=== PATIENT | female | born 1980 | race Caucasian/White ===

== ENCOUNTER → 2018-01-08 14:00 | Outpatient (CLI) | payer OTHER, SELFPAY | DX: Z23 Encounter for immunization (principal) | CPT/HCPCS: 90471; 90682 ==

== ENCOUNTER → 2018-10-30 15:12 | Outpatient (CLI) | payer OTHER, SELFPAY ==
[2018-10-30 17:01] LABS: Alanine Aminotransferase 19 IU/L (9-52); Albumin 4.4 g/dL (3.5-5.0); Albumin Globulin Ratio 1.8 (1.0-2.8); Alkaline Phosphatase 77 U/L (38-126); Amylase 62 U/L (30-110); Aspartate Aminotransferase 21 IU/L (14-36); BUN Creatinine Ratio 22.2 (6-22); Bilirubin Total 0.3 mg/dL (0.2-1.3); Blood Urea Nitrogen 20 mg/dL (7-17); Calcium 9.3 mg/dL (8.4-10.2); Carbon Dioxide 28 mmol/L (22-32); Chloride 102 mmol/L (98-107); Estimated Glomerular Filt Rate > 60.0 mL/min (>60); Globulin 2.5 g/dL (1.7-4.1); Glucose 94 mg/dL (70-100); HEMOLYSIS < 15 (0-50); Lipase 224 U/L (23-300); Potassium 5.1 mmol/L (3.4-5.1); Sodium 140 mmol/L (137-145); Total Protein 6.9 g/dL (6.3-8.2)
== END ==
PROVIDERS: PCP Family Medicine; Visit Provider Student in an Organized Health Care Education/Training Program
DX: R11.0 Nausea (principal)
CPT/HCPCS: 36415; 80053; 82150; 83690

== ENCOUNTER → 2019-01-21 11:47 | Outpatient (CLI) | payer OTHER, SELFPAY | PROVIDERS: PCP Family Medicine | DX: Z23 Encounter for immunization (principal) | CPT/HCPCS: 90471; 90682 ==

== ENCOUNTER → 2019-08-09 11:16 | Outpatient (CLI) | payer OTHER, SELFPAY ==
[2019-08-11 03:36] LABS: COVID19 Sendout Not Detected (Not Detected)
== END ==
PROVIDERS: PCP Family Medicine; Visit Provider Registered Nurse
DX: Z20.828 Contact with and (suspected) exposure to other viral communicable diseases (principal)
CPT/HCPCS: 87635

== ENCOUNTER → 2019-08-10 13:39 | Outpatient (CLI) | payer OTHER, SELFPAY ==
[2019-08-12 20:20] LABS: Influenza A - CEPHEID Flu A NEGATIVE (NEGATIVE); Influenza B - CEPHEID Flu B NEGATIVE (NEGATIVE)
== END ==
PROVIDERS: PCP Family Medicine; Visit Provider Registered Nurse
DX: J02.9 Acute pharyngitis, unspecified (principal); Z20.828 Contact with and (suspected) exposure to other viral communicable diseases
CPT/HCPCS: 87502

== ENCOUNTER → 2020-01-22 07:39 | Outpatient (CLI) | payer OTHER, SELFPAY ==
--- NOTE | 2020-01-22 | DI.US.S_ITS ---
PROCEDURE: US PELVIC COMPLETE INDICATIONS: IRREGULAR MENSES TECHNIQUE: Real-time scanning was performed of the pelvic organs, with image documentation. Additional endovaginal scanning was necessary due to incomplete visualization of the adnexal and endometrial structures by transabdominal scanning. COMPARISON: None. FINDINGS: Transabdominal scanning: Limited scanning through the kidneys shows no hydronephrosis. No pathologic free abdominal or pelvic fluid. Endovaginal scanning: Uterus: Uterus is normal in size at 6.6 x 3.9 x 4.4 cm. The endometrium measures 2.3 mm in combined thickness. There is a left posterior intramural fibroid which measures 0.9 x 0.5 x 0.8 cm and a left anterior intramural fibroid which measures 0.8 x 0.7 x 0.6 cm. Ovaries: The right ovary measures 2.2 x 1.6 x 2.2 cm and has a normal echotexture. There is a dominant 1.3 cm right ovarian follicle. The left ovary measures 2.4 x 1.0 x 2.8 cm. IMPRESSION: Unremarkable pelvic ultrasound. Dictated by: Pennie Motley M.D. on 01/22/2020 at 11:18 Approved by: Pennie Motley M.D. on 01/22/2020 at 11:20
--- NOTE | 2020-01-22 | DI.US.S_ITS ---
PROCEDURE: US ABDOMEN COMPLETE INDICATIONS: ELEVATED LIPASE, NAUSEA TECHNIQUE: Real-time scanning was performed of the abdominal and retroperitoneal organs, with image documentation. COMPARISON: MR, ABDOMEN W/O CONTRAST, 08/19/2014, 7:01. FINDINGS: Liver: Liver is normal in size and homogeneous in echotexture. Gallbladder: 1.3 cm solitary gallstone present and there is no gallbladder wall thickening or pericholecystic fluid. Biliary ducts: Intrahepatic bile ducts are non-dilated. Extrahepatic bile duct caliber measures 4.1 mm. Normal is 6-7 mm or less in diameter, or 10 mm or less post-cholecystectomy. Pancreas: Visualized portions of the pancreas are sonographically normal. Spleen: Spleen is normal in size and homogeneous in echotexture. Kidneys: Kidneys are normal in size and echotexture. Right kidney measures 10.5 cm long; left kidney measures 10.7 cm long. No hydronephrosis or nephrolithiasis. No solid masses. Aorta: Visualized aorta is normal in caliber at less than 3 cm. Iliacs: Proximal common iliac arteries are normal in caliber at less than 2.5 cm. IVC: Intrahepatic inferior vena cava is patent. Miscellaneous: No free abdominal fluid. IMPRESSION: Cholelithiasis without acute cholecystitis. Dictated by: Quinten Forrest [facility] Interpreted: Kemar Camilo MD on 01/22/2020 at 8:32 Approved by: Kemar Camilo M.D. on 01/22/2020 at 16:47
== END ==
PROVIDERS: PCP Family Medicine; Referring Provider Family Medicine; Visit Provider Family Medicine
DX: N92.6 Irregular menstruation, unspecified (principal); K80.20 Calculus of gallbladder without cholecystitis without obstruction; R50.9 Fever, unspecified
CPT/HCPCS: 76700; 76830; 76856

== ENCOUNTER → 2020-02-03 19:17 | Outpatient (CLI) | payer OTHER, SELFPAY | PROVIDERS: PCP Family Medicine; Referring Provider Internal Medicine; Visit Provider Internal Medicine | DX: Z23 Encounter for immunization (principal) | CPT/HCPCS: 90471; 90682 ==

== ENCOUNTER → 2020-03-16 15:29 | Outpatient (CLI) | payer OTHER, SELFPAY ==
[2020-03-16 16:22] LABS: COVID19 -Nasal RAPID Negative (Negative)
== END ==
PROVIDERS: PCP Family Medicine; Visit Provider Surgery
DX: Z11.59 Encounter for screening for other viral diseases (principal)
CPT/HCPCS: 87635; C9803

== ENCOUNTER 2020-03-17 10:58 | Day surgery (SDC) | payer OTHER, SELFPAY ==
[2020-03-12 13:29] VITALS: BMI 31.4
[2020-03-17] VITALS (11 sets, daily range): BP systolic 134–149; BP diastolic 75–94; PULSE 56–92; RESP 10–16; TEMP 36.6–36.9; O2SAT 98–100; BMI 32.1
--- NOTE | 2020-03-17 | PATH_ITS ---
[facility] Accession Number: [id number] . 01 Material submitted: . gallbladder - GALLBLADDER . 02 Diagnosis: Gallbladder, Cholecystectomy: Cholelithiasis with chronic, mild active cholecystitis and cholesterolosis. No evidence of neoplasm. MRV 03/19/2020 1132 Local . 02 Electronically signed: . Av Dumont MD, PhD, Pathologist NPI- [id number] . 01 Gross description: . Received in formalin, labeled gallbladder, and consists of a 6.5 x 3.5 x 2.2 cm previously disrupted gallbladder with a 0.4 cm in diameter cystic duct. The serosa is jaeger-pink and wrinkled. Opening reveals green viscous bile with a 1.2 x 1.0 x 1.0 cm green bosselated cholelith. The mucosa is jaeger-green and velvety with cholesterolosis. The wall thickness measures 0.1 cm. Subacute Nurse sections are submitted to include the en face cystic duct margin (black), body and fundus in cassette A1. ([id number]) /MRV 03/18/2020 1124 Local . 02 Pathologist provided ICD-10: K80.60 . 02 CPT . 277444 Performed at: 01 [facility] [address], [place], [place] [id number] MD Pop Strickland MD Phone: [phone] Performed at: 02 [facility] [address] [place], [place] [id number] MD Maggie Winter MD Phone: [phone]
--- NOTE | 2020-03-17 11:35 | SUR.OPER ---
Supine on padded OR bed, head on pillow, arms secured on padded arm boards at <90 degrees abduction, legs uncrossed, safety belt at thigh, tape over blanket over lower legs.
--- NOTE | 2020-03-17 11:36 | PM.HP.1 ---
History of Present Illness History of Present Illness Date Patient Seen: 03/17/20 Time Patient Seen: 11:36 Chief complaint: SDC Narrative: This is a 40-year-old woman with a complicated history of choledocholithiasis, sphincter of Oddi spasm, multiple MRCPs and ERCPs, pancreatitis, acid reflux, Brady's esophagus, toupe hiatal hernia repair, and hepatomegaly. She has had ongoing issues with gallstones, and in spite of having multiple ERCPs, has never had her gallbladder removed. She now presents with persistent right upper quadrant pain which is exacerbated by eating anything fatty or greasy. She had a right upper quadrant ultrasound which shows gallstones in the gallbladder, and non dilated bile ducts. She is here today for laparoscopic possible open cholecystectomy with possible intra op cholangiogram and indocyanine cholangiography. She reports no change since her last visit with me on 02/10/2020 ROS: Positive for low-grade fevers, fatigue, abdominal pain, change in bowel habits, constipation, reflux symptoms, nausea, irregular menses, weakness, anxiety, easy bruising. Thirteen system review is otherwise negative other than as mentioned below and in HPI. PE: GENERAL: Well groomed and cooperative. Appears stated age. Answers questions promptly and appropriately. Vital signs noted. HENT: Normocephalic, atraumatic. Hearing intact. EYES: Conjunctiva pink, sclera white, no periorbital swelling. CARDIOVASCULAR: Regular rate. No pedal edema. RESPIRATORY: Non-tachypneic, breathing comfortably on room air. GASTROINTESTINAL: Abdomen soft and non-distended; mild tenderness to palpation in the right upper quadrant and epigastrium. Multiple well-healed incisional scars from her hiatal hernia repair. Umbilical ring in place just superior to the umbilicus. GENITALURINARY: No flank tenderness. MUSCULOSKELETAL: Equal tone and mass bilaterally. SKIN: Warm, dry, soft, appropriate color for ethnicity. No other lesions, rashes, or wounds. NEURO: Alert and Oriented X 3. No gross sensory deficits, or cognitive issues. PSYCH: Appropriate affect and mood. Patient History Medical History Anxiety Asthma Chronic neck and back pain Difficulty swallowing Easy bruisability GERD (gastroesophageal reflux disease) Headache, migraine Pancreatitis Seasonal allergies Surgical History History of ERCP History of fundoplication Hx of rectal sphincterotomy Family & Social History Family History Mother Diabetes mellitus Gallstones Father Gallstones Social History: household members significant other Tobacco & Substance use: Smoking Status Never smoker alcohol intake current alcohol intake frequency 0-2 drinks per day Substance Use Type does not use Meds Home Medications and Allergies Home Medications Medication Instructions Recorded Confirmed Type acetylcarnitine HCl 250 mg capsule 250 mg PO DAILY 02/10/20 03/17/20 History cetirizine 10 mg tablet 10 mg PO DAILY 02/10/20 03/17/20 History cholecalciferol (vitamin D3) 50 50 mcg PO DAILY 02/10/20 03/17/20 History mcg (2,000 unit) capsule coenzyme Q10 75 mg capsule 75 mg PO DAILY 02/10/20 03/17/20 History lysine 500 mg tablet 1,000 mg PO DAILY 02/10/20 03/17/20 History metoclopramide HCl 10 mg tablet 10 mg PO Q6H PRN 02/10/20 03/17/20 History multivitamin 1 cap PO DAILY 02/10/20 03/17/20 History s-adenosylmethionine 400 mg tablet 400 mg PO DAILY 02/10/20 03/17/20 History vitamin B complex 1 tab PO DAILY 02/10/20 03/17/20 History zinc 50 mg tablet 50 mg PO DAILY 02/10/20 03/17/20 History docusate sodium 100 mg capsule 100 mg PO BID #20 cap 03/16/20 Rx oxycodone 5 mg tablet 5 mg PO Q6H PRN #20 tab 03/16/20 Rx etonogestrel-ethinyl estradiol 1 vag ring VAGINAL Q3W 03/17/20 03/17/20 History [NuvaRing] Allergies Allergy/AdvReac Type Severity Reaction Status Date / Time hydrocodone [From Vicodin] Allergy Unknown N&V, can't Verified 03/17/20 11:19 stand up egg Allergy Flu-like Verified 03/17/20 11:19 symptoms lactase [From Dairy Aid] AdvReac Congestion Verified 03/17/20 11:19 Exam Vital Signs (past 8 hours): - 03/17/20 11:24 Temperature 97.8 F Pulse Rate 68 Respiratory Rate 14 Blood Pressure 142/92 H Pulse Oximetry 100 Oxygen Delivery Method Room Air Assessment & Plan Assessment and plan (1) History of pancreatitis: Status: Acute (2) Gallstones: Status: Acute (3) Biliary colic: Status: Acute (4) Hepatomegaly: Status: Acute (5) History of fundoplication: Status: Acute (6) History of ERCP: Problem details: Multiple Status: Acute Assessment & Plan narrative: This is a 40-year-old woman with gallstones, and history of ERCP, pancreatitis, biliary colic, Nahomy fundoplication. She is here for laparoscopic cholecystectomy. Risks and benefits of laparoscopic possible open cholecystectomy, with possible intraop cholangiogram, possible indocyanine green cholangiography were discussed with the patient, including risk of bleeding, infection, damage to nearby structures, bile duct injury, need for additional procedures, need for transfer to an outside facility, need for hospital admission, need for open surgery.. The patient desires to proceed with cholecystectomy. COVID-19 COVID-19 status: Negative Result date/Date tested (Pos, Neg/Pending): 03/16/20 Time Spent With Patient Time with patient: 15-24 minutes Quality VTE Deep Vein Thrombosis/Pulmonary Embolism Present on Admission: No
[2020-03-17] MEDS: LACTATED RINGERS 1,000 ML 42 ML IV (11:37)
[2020-03-17] MEDS: Indocyanine 25 MG 25 EACH IV (11:46)
[2020-03-17] MEDS: PIPERACILLIN-TAZO 3.375 GM/50 ML FROZ.PIGGY IV (11:55)
[2020-03-17] MEDS: BUPIVACAINE 0.25% W/ EPI (PF) 10 ML VIAL 20 ML INJ (12:27)
[2020-03-17] MEDS: BUPIVACAINE LIPOSOME 266 MG/20 ML VIAL INJ (12:28)
[2020-03-17] MEDS: ONDANSETRON 4 MG/2 ML INJ IV (13:57)
--- NOTE | 2020-03-17 13:57 | PM.OP.1 ---
Operative Date/Time/Diagnoses Date of procedure: 03/17/20 Time of procedure: 13:57 Pre-op diagnosis: symptomatic cholelithiasis Post-op diagnosis: other (symptomatic cholelithiasis, chornic cholecystitis; extensive adhesions) Procedure & Clinicians Procedure: Laparoscopic cholecystectomy Takedown of extensive adhesions Same procedure as scheduled: Yes Indications: Biliary colic, gall stones, extensive history of choledocholithiasis, pancreatitis, ERCPx 2 Surgeon: Alea Martinez Anesthesia Type: General Operative Notes Findings: Extensive adhesions of omentum onto gall bladder; dense fibrotic scar tissue covering the gall bladder and hilum Specimen(s): other (gall bladder and contents) Estimated Blood Loss (mL): 5 Procedure in detail: The patient was brought into the operating room and placed supine on the OR table. Sequential compression devices were placed on both legs and turned on. Appropriate perioperative antibiotics were given prior to the start of surgery. General anesthesia was induced the patient was intubated. The abdomen was prepped and draped in sterile fashion. Surgical time-out was conducted. Local anesthetic was injected under the skin just superior to the umbilicus and a 5 mm vertical incision was made at this site. The umbilical stalk was grasped with a Perla and elevated. A Veress needle was passed through the fascia into proper position. The position was tested with a saline drop test which was appropriate for intra-abdominal Veress needle placement. The abdomen was then insufflated in the usual fashion. Once insufflated to 15 mm Hg the Veress needle was removed and a 5 mm optical trocar was placed under direct vision using a 5 mm 30 degree scope. Once the camera was inside the abdomen I took a look around. There was no injury from port placement. Two additional ports were placed in a similar fashion in the right upper quadrant and a 10 mm port was placed in the epigastrium. The gall bladder could not be seen directly because it was covered with densely adherent omentum. The omentum overlying the gall bladder fundus was grasped and elevated, and was carefully dissected off of the gall bladder. There were several layers of omentum adherent to the liver surface, the gall bladder and the stomach. Prolonged dissection for over 30 minutes was undertaken to remove all of the adherent omentum and control bleeding omental vessels, in order to reach the gall bladder and begin the gall bladder operation. Once the gall bladder was exposed, the gallbladder was grasped and elevated and the infundibulum was retracted laterally to the patient's right using bowel graspers through the two lateral ports. This exposed the gallbladder hilum and allowed for dissection of the cystic duct and cystic artery. There was quite a bit of dense scar tissue throughout the gallbladder hilum. This required tedious careful dissection to avoid injury to the bile ducts. Indocyanine cholangiography was used to identify the cystic duct and common bile duct, and to ensure we were dissecting out the proper structures. Once the cystic duct and artery were completely dissected out, I was able to see liver behind and between both structures without any other structures in the way, giving us the critical view of safety. At this point I triply clipped both structures on the patient's side and put a single clip on the gallbladder side of both the cystic duct and artery. Both structures were then divided with laparoscopic Davenport. Following this the gallbladder was gradually dissected free from the liver. Once the gallbladder was entirely freed, it was placed inside an Endo-Catch bag and removed through the epigastric port site. I [did] have to enlarge the epigastric site in order to get the gallbladder out. Once it was out and passed off to the back table I then took another look inside the abdomen. I suctioned clean any remaining blood or fluid on the lateral side of the liver and in the subhepatic space. There was no active bleeding or leaking of bile from the gallbladder fossa or from the clipped stumps of the cystic duct and artery. At this point the insufflation was removed from the abdomen and the epigastric port site was closed with 0 Vicryl suture in the fascia, 3 O Vicryl in the subcutaneous layers, and 4 Monocryl in the skin. The remaining port sites were closed with 4 Monocryl in the skin. Each port site was sealed with Dermabond. Local anesthetic was given at each of the port sites and in the fascia. This concluded the procedure. At this point the needle sponge and instrument counts were correct. The gallbladder was passed off the table for pathology. Patient was awakened from anesthesia and extubated. She was transferred to the postanesthesia care unit in stable condition. Complications: none Post-operative Condition: stable Disposition: PACU
[2020-03-17] MEDS: fentaNYL 100 MCG/2 ML INJ IV ×2 (14:28→14:34)
[2020-03-17] MEDS: OXYCODONE/ACETAMINOPHEN 5/325 TABLET 1 TAB PO (14:49)
== END 2020-03-17 15:21 | disposition home or self-care (01) ==
PROVIDERS: PCP Family Medicine; Referring Provider Family Medicine; Visit Provider Surgery
PROC: 0FT44ZZ Resection of Gallbladder, Percutaneous Endoscopic Approach (ICD-10-PCS; CPT 47562; principal; 2020-03-17 12:15)
DX: K80.10 Calculus of gallbladder with chronic cholecystitis without obstruction (principal); F41.9 Anxiety disorder, unspecified; J45.909 Unspecified asthma, uncomplicated; K21.9 Gastro-esophageal reflux disease without esophagitis; K66.0 Peritoneal adhesions (postprocedural) (postinfection); R16.0 Hepatomegaly, not elsewhere classified
CPT/HCPCS: 47563; 81025; C9290; J1100; J2250; J2405; J2543; J2704; J3010